=== PATIENT | male | born 1965 | race Caucasian/White ===

== ENCOUNTER → 2019-09-17 11:58 | Outpatient (BNVA) | payer BC, MEDICAID, SELFPAY | PROVIDERS: Family Provider Nurse Practitioner Family; PCP Family Medicine; Visit Provider Family Medicine | DX: E11.9 Type 2 diabetes mellitus without complications (principal); E03.9 Hypothyroidism, unspecified; I10 Essential (primary) hypertension; L30.9 Dermatitis, unspecified; I25.10 Atherosclerotic heart disease of native coronary artery without angina pectoris | CPT/HCPCS: 80053; 80061; 83036; 84439; 84443; 84481 ==

== ENCOUNTER 2019-11-17 16:47 | Observation (INO) | payer MEDICARE, MEDICAID, SELFPAY ==
[2019-11-17 16:48] VITALS: BP 115/76; PULSE 95; RESP 17; TEMP 36.6; O2SAT 98; BMI 27.8
[2019-11-17 17:09] VITALS: RESP 15
[2019-11-17 17:27] LABS: Basophils # 0.1 10^3/uL (0.0-0.1); Basophils % 0.5 %; Hematocrit 42.8 % (42.0-52.0); Mean Corpuscular HGB Conc 32.7 g/dL (30.0-36.0); Mean Corpuscular Hemoglobin 27.9 pg (28.0-34.0); Mean Corpuscular Volume 85.3 fL (80-94); Mean Platelet Volume 9.7 fL (7.4-10.4); Monocytes # 0.8 10^3/uL (0.2-0.9); Monocytes % 7.4 %; Neutrophils # 6.5 10^3/uL (1.8-7.7); Neutrophils % 62.8 %; Nucleated Red Blood Cells % 0 %; Platelet Count 299 10^3/cmm (130-400); Red Blood Count 5.02 10^6/uL (4.1-5.3); Red Cell Distribution Width 13.9 % (12.1-15.1); White Blood Count 10.3 10^3/uL (4.0-10.0)
[2019-11-17 17:27] LABS: Add Urine Microscopic? NO
--- NOTE | 2019-11-17 17:32 | ED_ITS ---
HPI - Psych General: Chief Complaint: Psychiatric Symptoms Stated Complaint: SI Time Seen by Provider: 11/17/19 16:59 History of Present Illness: HPI Narrative: This patient is a 54-year-old gentleman presenting with depression, suicidal and homicidal ideation. He has had problems with depression in the past and has had suicidal thoughts as well as suicide attempts in the past. He has had a very stressful day and was having thoughts about hurting his ex- as well as hurting himself. He has not done anything to try to harm himself or anyone else. He is voluntarily here requesting help. He takes sertraline and has been on that for some time. He a lso has a history of diabetes and heart attack last year. He said medically he has been doing very well recently. MD complaint: suicidal ideation and feels depressed Onset (ago): week(s) Duration: constant History of same: Yes Relieving factors: none Exacerbating factors: other (Stressors) Context: significant life stressor Associated symptoms: Reports depression, homicidal ideation and suicidal ideation Review of Systems General: Reports: 10 or more systems reviewed and unremarkable except in HPI and below Const: Denies: fever(s), chills, fatigue or malaise Eyes: Denies: change in vision ENMT: Denies: odynophagia Card: Denies: chest pain or swelling of feet/ankles Resp: Denies: dyspnea, productive cough or non-productive cough GI: Denies: abdominal pain, nausea or vomiting : Denies: flank pain Musc: Denies: neck pain or back pain Skin/Breast: Denies: rash Neuro: Denies: headache(s), numbness in extremities or weakness in extremities Psych: Reports: anxiety, depression, suicidal ideation and homicidal ideation Harley/Lymph: Denies: easy bruising or easy bleeding PFSH ED PFSH: Medical History CAD (coronary artery disease) Cholelithiases Diabetes GERD (gastroesophageal reflux disease) Hematochezia HTN (hypertension) Hypothyroidism ANGELES (obstructive sleep apnea) Shingles Syncope Tachycardia Surgical History S/P appendectomy S/P coronary artery stent placement 11/2018 Family History Other Diabetes Hypertension Social History Smoking and tobacco status: never smoked Second hand smoke exposure: No Alcohol intake: never Desire information about alcohol rehabilitation?: No Desire information about substance/drug rehabilitation?: No History of recent travel: No Current gender identity: Male Physical Exam Const: COMMON NORMALS: no acute distress, patient oriented x3, no limitations and alert GENERAL APPEARANCE: cooperative and comfortable HENMT: HEAD & SCALP: normal to inspection FACE & SINUS: normal facial exam Eye: GENERAL EYE: appearance normal, both eyes and all related structures Neck/C-Spine: COMMON NORMALS: supple, no meningeal signs and no JVD Chest: COMMONS NORMALS: normal inspection of the chest Resp: COMMON NORMALS: normal respiratory effort, No use of accessory muscles and clear to auscultation bilaterally AUSCULTATION: clear to auscultation bilaterally Cardio: COMMON NORMALS: no JVD, regular rate, regular rhythm and No murmurs present (Cardio) RATE: regular rate RHYTHM: regular rhythm GI: COMMON NORMALS: Normal to inspection, nondistended, normoactive bowel sounds present, Soft to palpation and non-tender INSPECTION: Yes normal to inspection AUSCULTATION: Yes normoactive bowel sounds PALPATION: Yes Soft to palpation Back/Pelvis: COMMON NORMALS: thoracic and lumbar spine normal to inspection Extremity: COMMON NORMALS: normal to inspection Neuro: COMMON NORMALS: patient oriented x3, moves all extremities, no focal motor deficits and no sensory deficits noted SENSORIUM/ORIENTATION: Yes alert MENINGEAL SIGNS: Yes no meningeal signs Psych: COMMON NORMALS: mental status grossly normal and cooperative ATTITUDE: Yes calm MOOD & AFFECT: Yes depressed mood Skin: COMMON NORMALS: no rashes or lesions noted and turgor normal GENERAL SKIN EXAM: no rashes or lesions noted and turgor normal MDM - Psych MDM Narrative: Medical decision making narrative: Patient with history of depression and prior suicide attempts. Presenting today for help due to his suicidal ideations. He admits to having some homicidal thoughts toward his ex- as well. Lab Data: Labs: Lab Results 11/17/19 11/17/19 11/17/19 Range/Units 17:07 17:07 17:15 WBC 10.3 H (4.0-10.0) 10^3/ uL RBC 5.02 (4.1-5.3) 10^6/u L Hgb 14.0 (11.7-16.6) g/dL Hct 42.8 (42.0-52.0) % MCV 85.3 (80-94) fL MCH 27.9 L (28.0-34.0) pg MCHC 32.7 (30.0-36.0) g/dL RDW 13.9 (12.1-15.1) % Plt Count 299 (130-400) 10^3/c mm MPV 9.7 (7.4-10.4) fL Neut % (Auto) 62.8 % Lymph % (Auto) 29.0 % Burleigh % (Auto) 7.4 % Eos % (Auto) 0.0 % Baso % (Auto) 0.5 % Neut # (Auto) 6.5 (1.8-7.7) 10^3/u L Lymph # (Auto) 3.0 (0.8-4.8) 10^3/u L Burleigh # (Auto) 0.8 (0.2-0.9) 10^3/u L Eos # (Auto) 0.0 (0.0-0.8) 10^3/u L Baso # (Auto) 0.1 (0.0-0.1) 10^3/u L Nucleated RBC % (a uto) 0 % Nucleated RBCs # 0.0 /100WBC Sodium (136-145) mmol/L Potassium (3.5-5.1) mmol/L Chloride (98-107) mmol/L Carbon Dioxide (22-29) mmol/L Anion Gap (5-19) BUN (6-20) mg/dL Creatinine (0.7-1.2) mg/dL GFR Calculation (90-130) mL/min Glucose (65-115) mg/dL Calculated Osmolal ity (285-295) mOsm/k g Calcium (8.5-10.5) mg/dL Total Bilirubin (0.15-1.2) mg/dL AST (0-40) U/L ALT (0-41) U/L Alkaline Phosphata se (40-130) IU/L Total Protein (6.6-8.7) g/dL Albumin (3.5-5.2) g/dL Globulin (1.3-4.6) g/dL TSH (0.27-4.20) uIU/ mL Urine Color Yellow (Yellow) Urine Appearance Clear (CLEAR) Urine pH 5 (5-7) Ur Specific Gravit y 1.025 (1.005-1.030) Urine Protein Neg (Negative) Urine Glucose (UA) Norm (Normal) Urine Ketones Negative (Negative) Urine Blood Neg (Negative) Urine Nitrate Negative (Negative) Urine Bilirubin Neg (NEGATIVE) Urine Urobilinogen Norm (Negative) mg/dL Ur Leukocyte Madhuri ase Negative (Negative) Salicylates (3-10) mg/dL Urine Opiates Scre en Negative (Negative) ng/mL Acetaminophen (10-30) ug/mL Ur Barbiturates Sc reen Negative (Negative) ng/mL Ur Phencyclidine S crn Negative (Negative) ng/mL Ur Amphetamines Sc reen Negative (Negative) ng/mL U Benzodiazepines Scrn Negative (Negative) ng/mL Urine Cocaine Scre en Negative (Negative) ng/mL U Marijuana (THC) Screen Negative (Negative) ng/mL Ethyl Alcohol (0-10) mg/dL 11/17/19 Range/Units 17:15 WBC (4.0-10.0) 10^3/ uL RBC (4.1-5.3) 10^6/u L Hgb (11.7-16.6) g/dL Hct (42.0-52.0) % MCV (80-94) fL MCH (28.0-34.0) pg MCHC (30.0-36.0) g/dL RDW (12.1-15.1) % Plt Count (130-400) 10^3/c mm MPV (7.4-10.4) fL Neut % (Auto) % Lymph % (Auto) % [place] % (Auto) % Eos % (Auto) % Baso % (Auto) % Neut # (Auto) (1.8-7.7) 10^3/u L Lymph # (Auto) (0.8-4.8) 10^3/u L [place] # (Auto) (0.2-0.9) 10^3/u L Eos # (Auto) (0.0-0.8) 10^3/u L Baso # (Auto) (0.0-0.1) 10^3/u L Nucleated RBC % (a uto) % Nucleated RBCs # /100WBC Sodium 139 (136-145) mmol/L Potassium 3.4 L (3.5-5.1) mmol/L Chloride 103 (98-107) mmol/L Carbon Dioxide 26 (22-29) mmol/L Anion Gap 13.4 (5-19) BUN 18 (6-20) mg/dL Creatinine 0.8 (0.7-1.2) mg/dL GFR Calculation 100.7 (90-130) mL/min Glucose 87 (65-115) mg/dL Calculated Osmolal ity 284 L (285-295) mOsm/k g Calcium 9.6 (8.5-10.5) mg/dL Total Bilirubin 0.6 (0.15-1.2) mg/dL AST 27 (0-40) U/L ALT 19 (0-41) U/L Alkaline Phosphata se 88 (40-130) IU/L Total Protein 7.6 (6.6-8.7) g/dL Albumin 4.8 (3.5-5.2) g/dL Globulin 2.8 (1.3-4.6) g/dL TSH 0.24 L (0.27-4.20) uIU/ mL Urine Color (Yellow) Urine Appearance (CLEAR) Urine pH (5-7) Ur Specific Gravit y (1.005-1.030) Urine Protein (Negative) Urine Glucose (UA) (Normal) Urine Ketones (Negative) Urine Blood (Negative) Urine Nitrate (Negative) Urine Bilirubin (NEGATIVE) Urine Urobilinogen (Negative) mg/dL Ur Leukocyte Madhuri ase (Negative) Salicylates < 0.3 L (3-10) mg/dL Urine Opiates Scre en (Negative) ng/mL Acetaminophen < 5.0 L (10-30) ug/mL Ur Barbiturates Sc reen (Negative) ng/mL Ur Phencyclidine S crn (Negative) ng/mL Ur Amphetamines Sc reen (Negative) ng/mL U Benzodiazepines Scrn (Negative) ng/mL Urine Cocaine Scre en (Negative) ng/mL U Marijuana (THC) Screen (Negative) ng/mL Ethyl Alcohol < 10 (0-10) mg/dL Discharge Plan Discharge Patient Disposition: Admitted As Inpatient Admit Provider: Branden Florence Clinical Impression: Suicidal ideation Depression Qualifiers: Depression Type: unspecified Qualified Code(s): F32.9 - Major depressive disorder, single episode, unspecified Condition: Stable Referrals: Jason Aragon FNP [Family Provider] - Eboni Alejandro MD [Primary Care Provider] - Discharge Date/Time: 11/17/19 19:55 Coding Level of Care Code ED Class A Truck Driver for Chg Fwd Exam Comprehensive
[2019-11-17 17:41] LABS: Bilirubin Urine Neg (NEGATIVE); Blood Urine Neg (Negative); Glucose Urine UA Norm (Normal); Ketones Urine Negative (Negative); Leukocyte Esterase Urine Negative (Negative); Nitrate Urine Negative (Negative); Protein Urine Neg (Negative); Specific Gravity, Urine 1.025 (1.005-1.030); Urine Appearance Clear (CLEAR); Urine Color Yellow (Yellow); Urobilinogen Urine Norm (Negative); pH Urine 5 (5-7)
[2019-11-17 17:53] LABS: Amphetamines Screen Urine Negative (Negative); Barbiturates Screen Urine Negative (Negative); Benzodiazepines Screen Urine Negative (Negative); Cocaine Screen Urine Negative (Negative); Opiate Screen Urine Negative (Negative); PCP Screen Urine Negative (Negative); THC Screen Urine Negative (Negative)
[2019-11-17 17:57] LABS: Alanine Aminotransferase 19 U/L (0-41); Albumin Level 4.8 g/dL (3.5-5.2); Alkaline Phosphatase 88 IU/L (40-130); Anion Gap 13.4 (5-19); Aspartate Amino Transferase 27 U/L (0-40); Blood Urea Nitrogen 18 mg/dL (6-20); Calcium 9.6 mg/dL (8.5-10.5); Carbon Dioxide 26 mmol/L (22-29); Chloride 103 mmol/L (98-107); Globulin 2.8 g/dL (1.3-4.6); Glomerular Filtration Rate 100.7 mL/min (90-130); Glucose 87 mg/dL (65-115); Osmolality Calculated 284 mOsm/kg (285-295); Potassium 3.4 mmol/L (3.5-5.1); Sodium 139 mmol/L (136-145); Thyroid Stimulating Hormone 0.24 uIU/mL (0.27-4.20); Total Bilirubin 0.6 mg/dL (0.15-1.2); Total Protein 7.6 g/dL (6.6-8.7)
[2019-11-17 18:07] LABS: Acetaminophen < 5.0 ug/mL (10-30); Alcohol Level < 10 mg/dL (0-10); Salicylate < 0.3 mg/dL (3-10)
[2019-11-17 18:55] VITALS: BP 138/81; PULSE 103; RESP 17; O2SAT 96
[2019-11-17 21:07] VITALS: BP 133/94; PULSE 95; RESP 18; TEMP 37.1; O2SAT 98
[2019-11-17] MEDS: trazodone 50 mg Tablet PO (21:11)
[2019-11-17] MEDS: hyDROXYzine 25 mg Capsule 50 MG PO (22:16)
--- NOTE | 2019-11-17 22:21 | PC.NURSE ---
PRN TRAZODONE PT REQUESTING SLEEP AID. TRAZODONE 50 MG ADMINISTERED. WILL MONITOR FOR MEDICATION EFFECTIVENESS.
--- NOTE | 2019-11-17 22:22 | PC.NURSE ---
PRN VISTARIL PT REQUESTING SOMETHING TO HELP WITH ANXIETY. VISTARIL 50 MG ADMINISTERED PO. WILL MONITOR FOR MEDICATION EFFECTIVENESS.
[2019-11-18 06:00] VITALS: BP 113/76; PULSE 75; RESP 18; TEMP 37; O2SAT 99
[2019-11-18 07:07] LABS: Glucose Point of Care 132 mg/dL (70-110)
[2019-11-18] MEDS: levothyroxine 150 mcg Tablet PO (09:25)
[2019-11-18] MEDS: metformin 500 mg Tablet 1000 MG PO ×2 (09:25→17:01)
[2019-11-18] MEDS: pioglitazone 30 mg Tablet 15 MG PO (09:25)
[2019-11-18] MEDS: atorvastatin 40 mg Tablet PO (09:25)
[2019-11-18] MEDS: carvedilol 25 mg Tablet PO (09:26)
[2019-11-18] MEDS: ticagrelor 90 mg Tablet PO ×2 (09:26→17:00)
[2019-11-18] MEDS: levothyroxine 25 mcg Tablet PO (09:26)
[2019-11-18] MEDS: acetaminophen 325 mg Tablet 650 MG PO (09:41)
[2019-11-18 14:00] VITALS: BP 102/68; PULSE 86; RESP 18; TEMP 36.8; O2SAT 98
[2019-11-18] MEDS: carvedilol 12.5 mg Tablet PO (17:00)
[2019-11-18 17:54] VITALS: BP 102/68; PULSE 86; RESP 18; TEMP 36.8; O2SAT 98
--- NOTE | 2019-11-18 18:01 | PM.NHP ---
Providers/Chief Complaint Admitting Physician: Branden Florence MD Primary Care Provider: Eboni Alejandro MD Chief Complaint: SI HPI NPU History of Present Illness Chief complaint: I was just having a really difficult time. I came here because I did not want to do something foolish. Fer Miller is a 54 year old male with a distant history of multiple psychiatric hospitalizations but has been doing well over the past year. He has been active in outpatient treatment. His last hospitalization was in August 2018. He was doing well up until the day of admission. It was at that time that he discovered that when he got a divorce 12 years ago, his was able to abscond with the majority of his [facility]. This was nearly $80,000. He had planned to use that money to purchase a piece of property on which to live. He thought he had found that property and was excited to purchase it. When he went to get the money, the money was gone. He became distraught. He decided to come to the emergency room for safety. In the light of day now the next day, he reports himself doing much better. He continues to be distraught but is no longer having thoughts of ending his life. Prior to yesterday, he was free of symptoms of depression to the extent that he was being advised to start tapering back his sertraline. Appetite and sleep are good. Hedonic capacity was good. He was looking forward to the future. He enjoyed spending time with his family. He denied any suicidal or homicidal ideations before then. He denied any auditory or visual hallucinations. Substance abuse does not seem to be an issue. He feels as though the crisis has passed and he is ready to go home.Laboratory Tests 11/17/19 11/17/19 17:07 17:15 Urine Opiates Screen Negative Ur Barbiturates Screen Negative Ur Phencyclidine Scrn Negative Ur Amphetamines Screen Negative U Benzodiazepines Scrn Negative Urine Cocaine Screen Negative U Marijuana (THC) Screen Negative Ethyl Alcohol < 10 Mental health history: From his last psych admission in August 2018: Patient is a 52-year-old male admitted on a voluntarily for suicidal ideation. 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 Patient reports that he is dyslexia and difficulty with paperwork and his new part-time job of 3 months after previously being unemployed X12 years. He has also been worried about mother in [place]. Reports has been more depressed, tired, hyper-somnolent, helplessness, and has been having passive suicidal thoughts and at times has thought of overdosing. Reports he wants to just go to sleep and stay asleep. He also endorses visual hallucinations of my cousin over the past 1 month intermittently but denies auditory hallucinations apparently reported to direct support staff member earlier. Also endorses some vague paranoia that boss is spying on him. He reports taking meds and going to Q2 week therapy appts, weekly CM (not regularly) and monthly med checks reports decline in mood continues. Psychiatric review systems: Patient endorses increased depression over the past few months as above. He also endorses 1 month history of intermittent visual hallucinations and increasing feelings of paranoia with no overt delusions. He does report a long history of generalized anxiety with difficult to manage worry about numerous issues much of the time causing muscle tension and difficulty sleeping/concentrating. Also endorses at least one prior episode of consistent manic symptoms for several days/likely 4 days or more where he was feeling hyper, engaging in risky behaviors/ excessive spending thousands on online shopping, insomnia for days, increased irritability. Patient denies auditory hallucinations to this provider but apparently endorsed those to nursing staff recently. Continued voluntary admission. Discontinued Abilify due to inefficacy/side effects and started Latuda 20 mg daily with supper for psychosis/bipolar depression with better metabolic profile. Resumed other outpatient medications as prior as well as diabetic diet/Accu-Cheks/RT consult for CPAP with overnight one-to-one monitoring. Additional labs ordered: Lipid panel Triglycerides 168, otherwise unremarkable with low-fat diet recommended. TSH 7.16, free T3 1.8, free T4 1.19 with Synthroid increased from 200 ?g daily to 250 ?g daily due to severe fatigue/depression. Vitamin B12 305 with daily vitamin B12 50 ?g supplementation recommended due to level less than 400 and severe fatigue/depression. Folate normal. Care management assisted with discharge/ safety planning. Discharge medications: Continued Medications: [Depo-Testosterone] () 200 MG IM [id number] Fluticasone Nasal [place] (Flonase Nasal [place]) 16 Gm Bottle 1 SPRAY NASAL HS, BOTTLE Glipizide ER (Glucotrol ER) 10 MG PO BID, #30 TAB Levothyroxine Sodium (Levothroid) 200 MCG PO DAILY, TAB Lisinopril/HCTZ 20mg/25mg Tab (Zestoretic 20mg/25mg Tab) 1 TAB PO DAILY, #30 TAB Metformin Tab (Glucophage Tab)1000 MG PO BID, #60 TAB Metoprolol Succinate XL Tab (Metoprolol XL Tab) 100 MG PO DAILY, #30 TAB Prazosin Hcl Cap (Minipress Cap) 1 MG PO HS, TAB Sertraline Tab (Zoloft Tab) 200 MG PO HS, TAB PAST FAMILY PSYCHIATRIC HISTORY: -Parents depression, cousin competed suicide and mother hx SI, father alcoholism. 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 He was never charged or convicted of any type of sex offense. By his report, there were claims made by his ex-'s family. Nothing ever came of the charges. However administratively he is required to report. He has been single for the past 12 years. He currently lives with his daughter. He has 2 other children. Denies alcohol/ tobacco/ illicit drugs. Disabled, PT employed. Has 3 children, lives alone, has some contact with kids. 8th grade education and dyslexia. He worked for several years at [employer] in [facility]. Now he lives at home and primarily works around his home. PAST MEDICAL HISTORY: -History cholecystectomy. testosterone deficiency, hypothyroidism, hypertension, non-insulin dependent diabetes, obstructive sleep apnea on CPAP. Denies history of seizures. He had a heart attack last year which has required him to lose weight and be on an exercise and weight loss program. Meds NPU Home Medications Medication Instructions Recorded Confirmed Last Taken Type famotidine 20 mg tablet 20 mg PO BID 06/17/19 11/17/19 Unknown History atorvastatin 40 mg tablet 40 mg PO DAILY 90 Days #90 tab 09/17/19 11/17/19 11/16/19 Rx metformin 1,000 mg tablet 1,000 mg PO BID 90 Days #180 tab 09/17/19 11/17/19 11/17/19 Rx levothyroxine 175 mcg capsule 175 mcg PO DAILY 90 Days #90 cap 09/19/19 11/17/19 11/17/19 Rx Actos 15 mg PO DAILY #30 tab 11/18/19 11/17/19 11/17/19 Rx Brilinta 90 mg PO BID 90 Days tab 11/18/19 11/17/19 11/17/19 Rx Nitrostat 0.4 mg SUBLINGUAL Q5M PRN #10 tab 11/18/19 11/17/19 Unknown Rx carvedilol See Rx Instructions .ROUTE 11/18/19 11/17/19 11/17/19 Rx .COMPLEX #30 tab glipizide 10 mg PO DAILY #30 tab 11/18/19 11/17/19 11/17/19 Rx lorazepam 1 mg PO DAILY PRN #10 tab 11/18/19 Unknown Rx sertraline 200 mg PO DAILY #30 tab 11/18/19 11/17/19 11/17/19 Rx Allergies Allergy/AdvReac Type Severity Reaction Status Date / Time No Known Allergies Allergy Verified 09/17/19 11:10 PFSH NPU PFSH: Medical History CAD (coronary artery disease) Cholelithiases Diabetes GERD (gastroesophageal reflux disease) Hematochezia HTN (hypertension) Hypothyroidism ANGELES (obstructive sleep apnea) Shingles Syncope Tachycardia Surgical History S/P appendectomy S/P coronary artery stent placement 11/2018 Family History Other Diabetes Hypertension Social History Smoking and tobacco status: never smoked Second hand smoke exposure: No Alcohol intake: never Desire information about alcohol rehabilitation?: No Desire information about substance/drug rehabilitation?: No History of recent travel: No Current gender identity: Male Mental Status Exam MSE Comments: Mental Status Exam: Patient is alert interpersonally engaged male appearing approximately his stated age. Eye contact is good. Psychomotoric activity is unremarkable. Information provided is internally consistent and consistent with that in the chart. He is in no emotional distress. Appearance: hygiene is fair; no gross neurological deficits., gait is unremarkable; AIMS=0 Speech: Speech is of normal rate and rhythm and easily understood. He is freely conversant and provides supplemental information spontaneously. Thought processes: Thought processes are abstract. Judgment is adequate for safety. Associations: intact Psychotic processes: There is no indication of guarding or paranoia. There is no attention to the internal stimuli. Auditory and visual hallucinations are denied. Judgment: Insight is fair. Problem solving skills are adequate for safety. Orientation: The patient is oriented to person, place time and situation. Memory: no deficits noted in immediate, intermediate, or remote spheres. Attention: The patient is alert and interpersonally engaged. Language: Verbalizations are coherent. Fund of knowledge: Fund of knowledge is adequate. Affect/Mood: Affect is sad with a euthymic mood. He denied suicidal ideation Affective range appropriate. Psychosis: perception unimpaired except through cognitive distortion; reality testing intact. Vitals/I&O/Wt Last Vital Signs Temp 98.3 F 11/18/19 17:54 Pulse 86 11/18/19 17:54 Resp 18 11/18/19 17:54 BP 102/68 11/18/19 17:54 Pulse Ox 98 11/18/19 17:54 Weight last 48 hrs Weight 90.718 kg Data NPU : 11/17/19 17:15 11/17/19 17:15 A&P Assessment and plan (1) Adjustment disorder with depressed mood: Status: Acute (2) Acute crisis reaction: Status: Acute Additional A&P Information Diagnoses: Adjustment disorder with disturbance of mood; acute crisis response Assessment: Crisis has resolved Treatment plan: Patient was discharged to home with the recommendation that he continue with his outpatient therapy. He is free to return should suicidal thoughts recur. Involuntary Hold Information 96 Hour Hold: 96 Hour Involuntary Admission: No Attestations NPU Medical Necessity Statement*: pateint discharged today Coding Level of Care Code Acute Laryngologist for Ino Mata Diagnoses Adjustment disorder with depressed mood F43.21 Acute crisis reaction F43.0
--- NOTE | 2019-11-18 18:15 | PM.NDC ---
Diagnoses at Discharge Discharge Diagnosis (1) Adjustment disorder with depressed mood: Status: Resolved (2) Acute crisis reaction: Status: Resolved Reason for Visit Reason for Visit: SI Brief History: 3 Chief complaint: I was just having a really difficult time. I came here because I did not want to do something foolish. History of present illness:Fre Miller is a 54 year old male with a distant history of multiple psychiatric hospitalizations but has been doing well over the past year. He has been active in outpatient treatment. His last hospitalization was in August 2018. He was doing well up until the day of admission. It was at that time that he discovered that when he got a divorce 12 years ago, his was able to abscond with the majority of his custodial. This was nearly $80,000. He had planned to use that money to purchase a piece of property on which to live. He thought he had found that property and was excited to purchase it. When he went to get the money, the money was gone. He became distraught. He decided to come to the emergency room for safety. In the light of day now the next day, he reports himself doing much better. He continues to be distraught but is no longer having thoughts of ending his life. Prior to yesterday, he was free of symptoms of depression to the extent that he was being advised to start tapering back his sertraline. Appetite and sleep are good. Hedonic capacity was good. He was looking forward to the future. He enjoyed spending time with his family. He denied any suicidal or homicidal ideations before then. He denied any auditory or visual hallucinations. Substance abuse does not seem to be an issue. He feels as though the crisis has passed and he is ready to go home.Laboratory Tests Hospital Course Hospital Course Diagnoses: Adjustment disorder with disturbance of mood; acute crisis response Assessment: Crisis has resolved Treatment plan: Patient was discharged to home with the recommendation that he continue with his outpatient therapy. He is free to return should suicidal thoughts recur. Involuntary Hold Information 96 Hour Hold: 96 Hour Involuntary Admission: No Mental Status Exam MSE Comments: Mental Status Exam: Patient is alert interpersonally engaged male appearing approximately his stated age. Eye contact is good. Psychomotoric activity is unremarkable. Information provided is internally consistent and consistent with that in the chart. He is in no emotional distress. Appearance: hygiene is fair; no gross neurological deficits., gait is unremarkable; AIMS=0 Speech: Speech is of normal rate and rhythm and easily understood. He is freely conversant and provides supplemental information spontaneously. Thought processes: Thought processes are abstract. Judgment is adequate for safety. Associations: intact Psychotic processes: There is no indication of guarding or paranoia. There is no attention to the internal stimuli. Auditory and visual hallucinations are denied. Judgment: Insight is fair. Problem solving skills are adequate for safety. Orientation: The patient is oriented to person, place time and situation. Memory: no deficits noted in immediate, intermediate, or remote spheres. Attention: The patient is alert and interpersonally engaged. Language: Verbalizations are coherent. Fund of knowledge: Fund of knowledge is adequate. Affect/Mood: Affect is sad with a euthymic mood. He denied suicidal ideation Affective range appropriate. Discharge Data Data Completed and Pending: Labs from last 24 hours 11/18/19 07:04 POC Glucose 132 Vitals: Last Vital Signs Temp 98.3 F 11/18/19 17:54 Pulse 86 11/18/19 17:54 Resp 18 11/18/19 17:54 BP 102/68 11/18/19 17:54 Pulse Ox 98 11/18/19 17:54 Discharge Plan Discharge Patient Disposition: Home, Self-Care Condition: Stable Prescriptions: New lorazepam 1 mg Tablet 1 mg PO DAILY PRN (Reason: Anxiety) Qty: 10 RF: 1 Continued atorvastatin 40 mg tablet 40 mg PO DAILY 90 Days Qty: 90 RF: 2 metformin 1,000 mg tablet 1,000 mg PO BID 90 Days Qty: 180 RF: 2 levothyroxine 175 mcg capsule 175 mcg PO DAILY 90 Days Qty: 90 RF: 0 famotidine 20 mg tablet 20 mg PO BID RF: 0 Actos 15 mg Tablet 15 mg PO DAILY Qty: 30 RF: 0 carvedilol 12.5 mg tablet See Rx Instructions .ROUTE .COMPLEX Qty: 30 RF: 0 glipizide 10 mg Tablet Extended Release 24hr 10 mg PO DAILY Qty: 30 RF: 0 sertraline 100 mg tablet 200 mg PO DAILY Qty: 30 RF: 0 Nitrostat 0.4 mg tablet, sublingual 0.4 mg SUBLINGUAL Q5M PRN (Reason: Chest Pain) Qty: 10 RF: 0 Brilinta 90 mg tablet 90 mg PO BID 90 Days RF: 0 Discontinued aspirin 81 mg tablet,delayed release (DR/EC) 81 mg PO DAILY RF: 0 multivitamin Capsule 1 cap PO QAM RF: 0 Discharge Orders: Discharge Order (Routine); Ordered 11/18/19 Ordered By: Branden Florence Referrals: Krysta Ang [Therapist] - 12/17/19 12:30 pm Jason Aragon FNP [Family Provider] - Eboni Alejandro MD [Primary Care Provider] - 4-7 days Patient Instructions: Lorazepam (By mouth), Depression (DC) Discharge Attestations NPU Time Spent in Discharge Care*: less than 30 min Coding Level of Care Code Acute [employer] Supervisor for [employer] Fwd Diagnoses Adjustment disorder with depressed mood F43.21 Acute crisis reaction F43.0
--- NOTE | 2019-11-18 21:40 | PC.NURSE ---
The patient's transportation has arrived. His belongings have been returned. He has the discharge paperwork and printed prescriptions. He exited the unit at [id number] accompanied by a staff member to escort him to the ED waiting area to meet his transporter.
== END 2019-11-18 21:37 | disposition home or self-care (01) ==
LOC: ER 18:41 → NP 11-18 14:38
PROVIDERS: Emergency Medicine; Admitting Provider Psychiatry & Neurology Psychiatry; Family Provider Nurse Practitioner Family; PCP Family Medicine; Visit Provider Psychiatry & Neurology Psychiatry
DX: F43.21 Adjustment disorder with depressed mood (principal); F43.0 Acute stress reaction; F29 Unspecified psychosis not due to a substance or known physiological condition; F32.9 Major depressive disorder, single episode, unspecified; F31.9 Bipolar disorder, unspecified; E11.9 Type 2 diabetes mellitus without complications; R53.83 Other fatigue; Z79.84 Long term (current) use of oral hypoglycemic drugs; E03.9 Hypothyroidism, unspecified; I10 Essential (primary) hypertension; G47.33 Obstructive sleep apnea (adult) (pediatric)
CPT/HCPCS: 12345; 36415; 36416; 80053; 80306; 80307; 81003; 82962; 84443; 85025; 99284; 99285; A9270; G0378

== ENCOUNTER → 2020-02-25 11:00 | Outpatient (BNVA) | payer BC, MEDICAID, SELFPAY | PROVIDERS: Family Provider Nurse Practitioner Family; PCP Family Medicine; Visit Provider Family Medicine | DX: E03.9 Hypothyroidism, unspecified (principal) | CPT/HCPCS: 84439; 84443; 84481 ==

== ENCOUNTER → 2020-08-02 10:50 | Outpatient (BNVA) | payer MEDICARE, MEDICAID, SELFPAY | PROVIDERS: Family Provider Nurse Practitioner Family; PCP Family Medicine; Visit Provider Family Medicine | DX: E03.9 Hypothyroidism, unspecified (principal); I25.10 Atherosclerotic heart disease of native coronary artery without angina pectoris; E11.620 Type 2 diabetes mellitus with diabetic dermatitis; I10 Essential (primary) hypertension; F33.0 Major depressive disorder, recurrent, mild | CPT/HCPCS: 80053; 80061; 83036; 84439; 84443; 84481 ==

== ENCOUNTER → 2020-12-28 11:17 | Outpatient (BNVA) | payer MEDICARE, MEDICAID, SELFPAY | PROVIDERS: Family Provider Nurse Practitioner Family; PCP Family Medicine; Visit Provider Family Medicine | DX: E03.9 Hypothyroidism, unspecified (principal); I10 Essential (primary) hypertension; E11.620 Type 2 diabetes mellitus with diabetic dermatitis | CPT/HCPCS: 80048; 83036; 84439; 84443; 84481 ==

== ENCOUNTER → 2021-06-29 10:33 | Outpatient (BNVA) | payer MEDICARE, MEDICAID, SELFPAY | PROVIDERS: Family Provider Nurse Practitioner Family; PCP Family Medicine; Visit Provider Family Medicine | DX: E11.620 Type 2 diabetes mellitus with diabetic dermatitis (principal); I25.10 Atherosclerotic heart disease of native coronary artery without angina pectoris; I10 Essential (primary) hypertension; E03.9 Hypothyroidism, unspecified; E11.9 Type 2 diabetes mellitus without complications; F33.0 Major depressive disorder, recurrent, mild | CPT/HCPCS: 80053; 80061; 83036; 84439; 84443; 84481 ==

== ENCOUNTER → 2021-10-16 15:49 | Outpatient (BNVA) | payer MEDICARE, MEDICAID, SELFPAY | PROVIDERS: Family Provider Nurse Practitioner Family; PCP Family Medicine; Visit Provider Emergency Medicine | DX: M25.561 Pain in right knee (principal) | CPT/HCPCS: 73562; 80048; 84550; 85007; 85027 ==

== ENCOUNTER → 2021-12-28 10:10 | Outpatient (BNVA) | payer MEDICARE, MEDICAID, SELFPAY | PROVIDERS: Family Provider Nurse Practitioner Family; PCP Family Medicine; Visit Provider Family Medicine | DX: I25.10 Atherosclerotic heart disease of native coronary artery without angina pectoris (principal); I10 Essential (primary) hypertension; E11.620 Type 2 diabetes mellitus with diabetic dermatitis; E11.9 Type 2 diabetes mellitus without complications; E03.9 Hypothyroidism, unspecified; F33.0 Major depressive disorder, recurrent, mild | CPT/HCPCS: 80048; 83036; 84443 ==

== ENCOUNTER → 2022-06-27 10:56 | Outpatient (BNVA) | payer MEDICARE, MEDICAID, SELFPAY | PROVIDERS: Family Provider Nurse Practitioner Family; PCP Family Medicine; Visit Provider Family Medicine | DX: E03.9 Hypothyroidism, unspecified (principal); I25.10 Atherosclerotic heart disease of native coronary artery without angina pectoris; Z13.220 Encounter for screening for lipoid disorders; Z13.6 Encounter for screening for cardiovascular disorders; M54.50 Low back pain, unspecified; G89.29 Other chronic pain; I10 Essential (primary) hypertension | CPT/HCPCS: 72100; 80053; 80061; 84439; 84443; 84481 ==

== ENCOUNTER → 2022-11-15 10:56 | Outpatient (BNVA) | payer MEDICARE, MEDICAID, SELFPAY | PROVIDERS: Family Provider Nurse Practitioner Family; PCP Family Medicine; Visit Provider Family Medicine | DX: I25.10 Atherosclerotic heart disease of native coronary artery without angina pectoris (principal); I10 Essential (primary) hypertension; E11.620 Type 2 diabetes mellitus with diabetic dermatitis; E03.9 Hypothyroidism, unspecified; M54.50 Low back pain, unspecified; G89.29 Other chronic pain; E11.9 Type 2 diabetes mellitus without complications; F32.9 Major depressive disorder, single episode, unspecified; R53.83 Other fatigue; G47.33 Obstructive sleep apnea (adult) (pediatric); R53.82 Chronic fatigue, unspecified; F33.0 Major depressive disorder, recurrent, mild | CPT/HCPCS: 80053; 82607; 83036; 83735; 84439; 84443; 84481; 85025 ==

== ENCOUNTER → 2023-05-24 09:38 | Outpatient (BNVA) | payer MEDICARE, MEDICAID, SELFPAY | PROVIDERS: Family Provider Nurse Practitioner Family; PCP Family Medicine; Visit Provider Family Medicine | DX: L30.9 Dermatitis, unspecified (principal); L21.9 Seborrheic dermatitis, unspecified; E03.9 Hypothyroidism, unspecified; E11.620 Type 2 diabetes mellitus with diabetic dermatitis; I10 Essential (primary) hypertension; E11.9 Type 2 diabetes mellitus without complications | CPT/HCPCS: 80053; 80061; 83036; 84443 ==

== ENCOUNTER → 2023-11-19 11:19 | Outpatient (BNVA) | payer MEDICARE, MEDICAID, SELFPAY | PROVIDERS: Family Provider Nurse Practitioner Family; PCP Family Medicine; Visit Provider Family Medicine | DX: E11.620 Type 2 diabetes mellitus with diabetic dermatitis (principal); I25.10 Atherosclerotic heart disease of native coronary artery without angina pectoris; L21.9 Seborrheic dermatitis, unspecified; I10 Essential (primary) hypertension; E03.9 Hypothyroidism, unspecified; E11.9 Type 2 diabetes mellitus without complications; J44.9 Chronic obstructive pulmonary disease, unspecified; M54.50 Low back pain, unspecified; G89.29 Other chronic pain; F32.9 Major depressive disorder, single episode, unspecified; F33.0 Major depressive disorder, recurrent, mild; K21.9 Gastro-esophageal reflux disease without esophagitis; Z79.899 Other long term (current) drug therapy | CPT/HCPCS: 80053; 83036; 84439; 84443; 84481; 85025 ==

== ENCOUNTER → 2024-05-20 10:57 | Outpatient (BNVA) | payer MEDICARE, MEDICAID, SELFPAY | PROVIDERS: Family Provider Nurse Practitioner Family; PCP Family Medicine; Visit Provider Family Medicine | DX: I10 Essential (primary) hypertension (principal); E03.9 Hypothyroidism, unspecified; E11.620 Type 2 diabetes mellitus with diabetic dermatitis | CPT/HCPCS: 80053; 80061; 83036 ==

== ENCOUNTER → 2024-11-19 09:35 | Outpatient (BNVA) | payer MEDICARE, SELFPAY | PROVIDERS: Family Provider Nurse Practitioner Family; PCP Family Medicine; Visit Provider Family Medicine | DX: I10 Essential (primary) hypertension (principal); E11.9 Type 2 diabetes mellitus without complications; E03.9 Hypothyroidism, unspecified; E11.620 Type 2 diabetes mellitus with diabetic dermatitis | CPT/HCPCS: 80048; 83036; 84443 ==

== ENCOUNTER → 2024-11-26 08:36 | Outpatient (BNVA) | payer MEDICARE, SELFPAY | PROVIDERS: Family Provider Nurse Practitioner Family; PCP Family Medicine; Visit Provider Podiatrist Foot & Ankle Surgery | DX: E11.42 Type 2 diabetes mellitus with diabetic polyneuropathy (principal); M21.621 Bunionette of right foot; M21.622 Bunionette of left foot; M77.41 Metatarsalgia, right foot; M77.42 Metatarsalgia, left foot; E11.620 Type 2 diabetes mellitus with diabetic dermatitis; Z79.84 Long term (current) use of oral hypoglycemic drugs | CPT/HCPCS: 99203 ==

== ENCOUNTER 2025-01-06 20:00 | Outpatient (CLI) | payer MEDICARE, SELFPAY | END 2025-01-06 20:01 | disposition home or self-care (01) | LOC: SLEEP 20:03 | PROVIDERS: Family Provider Nurse Practitioner Family; PCP Family Medicine; Referring Provider Family Medicine; Visit Provider Internal Medicine Pulmonary Disease | DX: G47.33 Obstructive sleep apnea (adult) (pediatric) (principal); G47.36 Sleep related hypoventilation in conditions classified elsewhere | CPT/HCPCS: 95810 ==

== ENCOUNTER → 2025-02-11 09:05 | Outpatient (BNVA) | payer MEDICARE, SELFPAY | PROVIDERS: Family Provider Nurse Practitioner Family; PCP Family Medicine; Visit Provider Dermatology | DX: L28.0 Lichen simplex chronicus (principal); D18.01 Hemangioma of skin and subcutaneous tissue; L81.4 Other melanin hyperpigmentation; L28.1 Prurigo nodularis; L53.8 Other specified erythematous conditions; L29.89 Other pruritus; R20.8 Other disturbances of skin sensation | CPT/HCPCS: 11900; 99204 ==

== ENCOUNTER → 2025-02-22 10:37 | Outpatient (BNVA) | payer MEDICARE, SELFPAY | PROVIDERS: Family Provider Family Medicine; PCP Family Medicine; Visit Provider Family Medicine | DX: E11.9 Type 2 diabetes mellitus without complications (principal) | CPT/HCPCS: 83036 ==